=== PATIENT | female | born 1950 | race Caucasian/White ===

== ENCOUNTER 2021-06-03 11:39 | Outpatient (CLI) | payer MEDICARE, SELFPAY ==
[2021-06-03 11:50] VITALS: BP 150/82; PULSE 90; RESP 16; TEMP 36.7; O2SAT 97; BMI 31.8
[2021-06-03] MEDS: 0.9% Saline Lock 10 ML Syringe IV (11:53)
[2021-06-03 12:16] VITALS: BP 139/78; PULSE 76; RESP 16; TEMP 37.2; O2SAT 95
[2021-06-03 13:16] VITALS: BP 148/76; PULSE 67; RESP 16; TEMP 36.8; O2SAT 97
== END 2021-06-03 13:16 | disposition home or self-care (01) ==
LOC: MS3OUT 11:39 → MS3 11:40
PROVIDERS: Referring Provider Nurse Practitioner Adult Health; Visit Provider Nurse Practitioner Adult Health
DX: U07.1 COVID-19 (principal)
CPT/HCPCS: J7050; M0243; A4216; Q0244